=== PATIENT | male | born 1965 | race Caucasian/White ===

== ENCOUNTER → 2019-07-11 11:42 | Outpatient (BNVA) | payer SELFPAY | PROVIDERS: Visit Provider Specialist | DX: G44.221 Chronic tension-type headache, intractable (principal); F17.210 Nicotine dependence, cigarettes, uncomplicated | CPT/HCPCS: 99213 ==

== ENCOUNTER → 2019-10-18 14:55 | Outpatient (BNVA) | payer SELFPAY | PROVIDERS: Visit Provider Specialist | DX: F07.81 Postconcussional syndrome (principal); G43.711 Chronic migraine without aura, intractable, with status migrainosus; F17.210 Nicotine dependence, cigarettes, uncomplicated | CPT/HCPCS: 99213 ==

== ENCOUNTER → 2019-11-29 13:57 | Outpatient (BNVA) | payer SELFPAY | PROVIDERS: PCP Nurse Practitioner Family; Visit Provider Specialist | DX: G43.711 Chronic migraine without aura, intractable, with status migrainosus (principal); F07.81 Postconcussional syndrome; F17.210 Nicotine dependence, cigarettes, uncomplicated | CPT/HCPCS: 99213 ==

== ENCOUNTER → 2020-01-27 12:22 | Outpatient (BNVA) | payer SELFPAY | PROVIDERS: PCP Nurse Practitioner Family; Visit Provider Specialist | DX: G43.711 Chronic migraine without aura, intractable, with status migrainosus (principal) | CPT/HCPCS: 64615; J0585 ==

== ENCOUNTER → 2020-04-26 14:37 | Outpatient (BNVA) | payer SELFPAY | PROVIDERS: PCP Nurse Practitioner Family; Visit Provider Specialist | DX: G43.711 Chronic migraine without aura, intractable, with status migrainosus (principal); F17.210 Nicotine dependence, cigarettes, uncomplicated | CPT/HCPCS: 64615; J0585 ==

== ENCOUNTER → 2020-07-26 15:14 | Outpatient (BNVA) | payer SELFPAY | PROVIDERS: PCP Nurse Practitioner Family; Visit Provider Specialist | DX: G43.711 Chronic migraine without aura, intractable, with status migrainosus (principal); F07.81 Postconcussional syndrome; F17.210 Nicotine dependence, cigarettes, uncomplicated | CPT/HCPCS: 64615; J0585 ==

== ENCOUNTER → 2021-01-24 09:46 | Outpatient (BNVA) | payer MEDICAID, SELFPAY | PROVIDERS: PCP Nurse Practitioner Family; Visit Provider Specialist | DX: G43.711 Chronic migraine without aura, intractable, with status migrainosus (principal); G47.00 Insomnia, unspecified; G45.3 Amaurosis fugax; F07.81 Postconcussional syndrome; F17.210 Nicotine dependence, cigarettes, uncomplicated | CPT/HCPCS: 64615; 99214; J0585 ==

== ENCOUNTER 2021-05-20 10:37 | Outpatient (CLI) | payer MEDICAID, SELFPAY ==
--- NOTE | 2021-05-20 11:00 | USCV_ITS ---
Thony Fernie Age: 56 Gender: M : 1965 Exam Date: 05/20/2021 11:03 Ordering Phys: Edna Bundy MD Technologist: JENNIFER Exam Location: [facility] [place] Indication: LEFT VISUAL DISTURBANCES X 3 MONTHS Risk Factors: [employer] 1PK/DAY [employer]MO[employer] Previous Vascular Surgery: NONE Right Brachial BP: / Left Brachial BP: / Right Left Velocity (cm/s) Spectral Plaque Velocity (cm/s) Spectral Plaque Syst/Diast Broadening Syst/Diast Broadening 59.30/ 16.60 Prox CCA 83.80 / 20.90 63.00/ 17.60 Mid CCA 83.80 / 30.90 84.70/ 20.20 Distal CCA 83.80 / 29.80 56.50/ 21.00 Prox ICA 63.20 / 23.90 91.70/ 37.30 Mid ICA 45.40 / 20.30 62.10/ 27.60 Distal ICA 63.00 / 27.80 79.50 ECA 80.30 1.03 ICA/CCA 0.75 Antegrade Vertebral Antegrade 17.10/ 7.30 cm/s 41.90/ 17.90 cm/s Tri Subclavian Tri CONCLUSIONS Right ICA stenosis <50%. Mild atheromatous plaque right carotid bulb/ICA. Left ICA stenosis <50%. Mild atheromatous plaque left carotid bulb/ICA. Normal antegrade Doppler flow noted in a small right vertebral artery. Normal antegrade Doppler flow noted in the left vertebral artery. Yannick Leon MD (Electronically Signed) Final Date: 20 May 2021 17:38 S
== END 2021-05-20 10:38 | disposition home or self-care (01) ==
LOC: RAD 10:40
PROVIDERS: PCP Nurse Practitioner Family; Visit Provider Specialist
DX: I65.29 Occlusion and stenosis of unspecified carotid artery (principal); R68.89 Other general symptoms and signs
CPT/HCPCS: 93880

== ENCOUNTER → 2021-11-28 13:22 | Outpatient (BNVA) | payer BC, MEDICAID, SELFPAY | PROVIDERS: PCP Nurse Practitioner Family; Visit Provider Specialist | DX: G43.711 Chronic migraine without aura, intractable, with status migrainosus (principal) | CPT/HCPCS: 64615; J0585 ==